=== PATIENT | male | born 1990 | race Caucasian/White ===

== ENCOUNTER 2021-09-09 23:16 | Emergency (ER) | payer BC, MEDICAID ==
[~2021-09-09] VITALS: Ht 175.3 cm; Wt 161.0 kg
[2021-09-10] MEDS ORDERED: BENZONATATE 100 MG CAPSULE PO PRN
--- NOTE | 2021-09-10 | NUR ---
PT A/O X 3 C/O COUGH, HEADACHE, BODYACHES S/S STARTED TODAY PER PT. PT STATES TESTED NEGATIVE FOR COVID 3 DAYS AGO. PT 98% O2 SAT ON RA
--- NOTE | 2021-09-10 00:33 | NUR ---
RAPID INFLUENZA COMPLETED AND SENT TO LAB
[2021-09-10] MEDS ORDERED: GUAIFENESIN LA 600 MG TABLET.SA PO ONE ×2 (00:47)
[2021-09-10] MEDS ORDERED: BENZ-13 PO (00:58)
[2021-09-10] MEDS ORDERED: GUAI1TBM19 PO (00:58)
--- NOTE | 2021-09-10 01:13 | NUR ---
Patient discharged to home in stable condition. Written and verbal after care instructions given. Patient verbalizes understanding of instruction. Pt ambulatory with a steady gait
[2021-09-10 01:14] VITALS: BP 123/78
== END 2021-09-10 01:15 | disposition home or self-care (01) ==
LOC: ER 23:16
DX: J06.9 Acute upper respiratory infection, unspecified (principal); M79.10 Myalgia, unspecified site; Z20.822 Contact with and (suspected) exposure to COVID-19; I10 Essential (primary) hypertension
CPT/HCPCS: 71045; 87426; 87804; 99284; C9803

== ENCOUNTER 2022-09-22 22:00 | Emergency (ER) | payer MEDICAID ==
[~2022-09-22] VITALS: Ht 175.3 cm; Wt 161.0 kg
[~2022-09-22 22:00] MED LIST: BENZ-13 PO; GUAI1TBM19 PO
--- NOTE | 2022-09-22 22:12 | NUR ---
BIBS FOR ON AND OFF MID- STERNAL CP X 3 WEEKS. - SOB, N/V OR DIZZINESS. PATIENT IS AAOX4. AMBULATORY. ABLE TO MAKE NEEDS KNOWN. PLACED COMFORTABLY IN BED. VITALS CHECKED.
--- NOTE | 2022-09-22 22:15 | NUR ---
PRESENTED TO THE ER FOR C/O MULTIPLE EPISODES OF MIS- STERNAL NON- RADIATING CP FOR THE PAST 3 WEEKS. HASN'T BEEN ABLE TO SCHEDULE AN APPOINTMENT WITH HIS PCP. PATIENT A, OX4. DENIED N/V, DIZZINESS OR SOB AT THIS TIME. AMBULATORY WITH STEADY GAITS TO THE BED 2 ER. WAS PLACED ON A MONITOR. VSS . EMT AT BED SIDE FOR EKG.
[2022-09-22 22:50] LABS: BASOPHILS % (AUTO) 0.3 % (0.0-2.0); EOSINOPHILS % (AUTO) 2.1 % (0.0-6.0); HEMATOCRIT 43 % (39-51); HEMOGLOBIN 14.5 g/dL (13.5-17.5); LYMPHOCYTES # (AUTO) 2.8 K/uL (0.8-4.8); LYMPHOCYTES % (AUTO) 31.4 % (20.0-44.0); MEAN CORPUSCULAR HGB CONC 33 g/dl (31.0-36.0); MEAN CORPUSCULAR VOLUME 84 fL (80-96); MONOCYTES # (AUTO) 0.6 K/uL (0.1-1.30); MONOCYTES % (AUTO) 6.3 % (2.0-12.0); NEUTROPHILS # (AUTO) 5.4 K/uL (1.8-8.9); NEUTROPHILS % (AUTO) 59.9 % (43.0-81.0); PLATELET COUNT (AUTO) 324 K/uL (150-450); RED BLOOD CELL COUNT(AUTO) 5.16 MIL/uL (4.5-6.0)
--- NOTE | 2022-09-22 22:59 | NUR ---
XRAY DONE AT BEDSIDE
[2022-09-22 23:14] LABS: CALCIUM, SERUM 8.5 mg/dL (8.5-10.1); CARBON DIOXIDE 25 mmol/L (21-32); CHLORIDE 102 mmol/L (98-107); CREATININE 0.9 mg/dL (0.6-1.3); GLUCOSE 117 mg/dL (74-106); POTASSIUM 3.6 mmol/L (3.5-5.1); SODIUM SERUM 137 mmol/L (136-145); UREA NITROGEN, BLOOD 9 mg/dL (7-18)
[2022-09-22 23:43] VITALS: BP 133/70
--- NOTE | 2022-09-22 23:43 | NUR ---
Patient discharged to home in stable condition. Written and verbal after care instructions given. Patient verbalizes understanding of instruction.
== END 2022-09-22 23:43 | disposition home or self-care (01) ==
LOC: ER 22:07
DX: R07.89 Other chest pain (principal); I10 Essential (primary) hypertension; F17.200 Nicotine dependence, unspecified, uncomplicated; Z79.899 Other long term (current) drug therapy
CPT/HCPCS: 36415; 71045-TC; 80048-TC; 84484-TC; 85025-TC

== ENCOUNTER 2023-05-21 15:19 | Emergency (ER) | payer MEDICAID ==
[~2023-05-21] VITALS: Ht 170.2 cm; Wt 161.0 kg
[2023-05-21] MEDS ORDERED: KETOROLAC TROMETHAMINE INJ 30 MG/ML VIAL IM ONE (20:00)
[2023-05-21] MEDS ORDERED: CYCL5TAB PO (20:05)
[2023-05-21] MEDS ORDERED: IBUP-1957 PO (20:05)
[2023-05-21] MEDS ORDERED: KETOROLAC TROMETHAMINE INJ 30 MG/ML VIAL ONE (20:14)
[2023-05-21 20:48] VITALS: BP 138/78; TEMP 98.2; O2SAT 99
== END 2023-05-21 20:48 | disposition home or self-care (01) ==
LOC: ER 15:19
DX: M54.16 Radiculopathy, lumbar region (principal); I10 Essential (primary) hypertension; F17.200 Nicotine dependence, unspecified, uncomplicated; Z79.899 Other long term (current) drug therapy
CPT/HCPCS: 99283; 96372; J1885